=== PATIENT | male | born 1975 | race African-American/Black ===

== ENCOUNTER 2016-05-18 07:53 | Emergency (ER) | payer BC ==
[~2016-05-18] VITALS: Ht 175.3 cm; Wt 104.3 kg
--- NOTE | 2016-05-18 08:37 | PHYS DOC ---
Past Medical History Past Medical History: No Pertinent History Past Surgical History: No Surgical History Alcohol Use: Occasionally Drug Use: None Adult General Chief Complaint Chief Complaint: LOWER EXT PAIN HPI HPI Patient is a 41 year old male who presents with RLE pain and bump. Patient reports 3 days ago he noticed a bump on the lateral aspect of his R foot. No trauma or other inciting event. Since then he has been having pain/numbness all the way up his R leg into his lower back. No urinary complaints. No weakness, no loss of bowel/bladder continence. No prior similar episodes. Review of Systems Review of Systems Constitutional: Denies fever or chills Respiratory: Denies cough or shortness of breath Cardiovascular: Denies chest pain GI: Denies abdominal pain, nausea, vomiting, or diarrhea Musculoskeletal: Bump on R foot, pain/numb from low back down along RLE Neurologic: Denies headache, focal weakness. Numbness in RLE Current Medications Current Medications Current Medications Medications (Trade) Dose Ordered Sig/Dereck Start Time Stop Time Status Last Admin Dose Admin Naproxen (Naprosyn) 500 mg 1X ONCE 05/18/16 08:45 05/18/16 08:46 DC 05/18/16 08:49 500 MG Allergies Allergies Allergies Coded Allergies Type Severity Reaction Last Updated Verified No Known Drug Allergies 08/30/15 No Physical Exam Physical Exam Constitutional: Well developed, well nourished, no acute distress, non-toxic appearance HENT: Normocephalic, atraumatic, bilateral external ears normal Eyes: EOMI, conjunctiva normal, no discharge Neck: Normal range of motion, no stridor Cardiovascular: Heart rate normal, regular rhythm, no murmur Lungs & Thorax: Bilateral breath sounds clear to auscultation Abdomen: Bowel sounds normal, soft, non-distended, no TTP Skin: Warm, dry, no erythema, no rash Back: No TTP, no stepoff Extremities: No obvious deformity, no edema. Small (1cm) raised bump R lateral foot, no erythema/warmth/tenderness noted, 2+ DP pulse, motor function and sensation to light touch fully intact Neurologic: Alert and oriented X 3, strength and sensation to light touch intact and symmetrical in BLE, no gross deficits noted Psychologic: Affect normal, judgement normal, mood normal Current Patient Data Vital Signs Vital Signs Date Time Temp Pulse Resp B/P Pulse Ox O2 Delivery O2 Flow Rate FiO2 05/18/16 10:45 65 12 132/90 99 Room Air 05/18/16 08:03 97.9 97.9 EKG EKG [] Radiology/Procedures Radiology/Procedures X-ray lumbar spine: Impression: Negative for fracture. X-ray R foot: Impression: Negative for fracture. Course & Med Decision Making Course & Med Decision Making Pertinent Labs and Imaging studies reviewed. (See chart for details) Patient is 41 year old male who presents with RLE pain/numbness and bump on R foot. The description of pain/numbness fits with sciatica; will obtain lumbar x- ray and give dose of naproxen (as patient is driving). Bump on R foot appears to be enlarged lymph node, although no infectious source or other clear inciting process is noted. X-ray R foot ordered as well. Imaging results as above. Discussed results with patient. Will plan discharge home with rx for NSAID and muscle relaxant, instructions for follow up, return precautions. Dragon Disclaimer Dragon Disclaimer This electronic medical record was generated, in whole or in part, using a voice recognition dictation system. Departure Departure Impression: Primary Impression: Leg numbness Additional Impression: Lymph node enlargement Disposition: HOME, SELF-CARE Condition: STABLE Referrals: NO PCP (PCP) Patient Instructions: Sciatica Additional Instructions: Thank you for allowing us to provide care today in the Emergency Department. Take the provided medication as directed. Use caution when taking the muscle relaxant as it can make you drowsy. Schedule a follow up appointment with a primary care doctor using the provided list. Return promptly to the Emergency Department if you develop any new or concerning symptoms. Scripts Cyclobenzaprine Hcl 10 Mg [id number] Mg PO TID PRN MUSCLE SPASMS #15 TAB Prov:DAYANARA STERLING MD 05/18/16 Naproxen 375 Mg [id number] Mg PO BID PRN PAIN #20 Prov:DAYANARA STERLING MD 05/18/16 Problem Qualifiers DAYANARA STERLING MD May 18, 2016 08:37
[2016-05-18] MEDS ORDERED: NAPROXEN 500 MG TABLET PO ONE (08:45)
--- NOTE | 2016-05-18 10:13 | RAD ---
Indication: Knot laterally for 2 to 3 days. Technique: 3 views of the right foot are submitted for review. No comparison is available. Findings: There is no fracture or dislocation. There is minimal spurring from the navicular. There is no soft tissue swelling. Impression: Negative for fracture.
--- NOTE | 2016-05-18 10:14 | RAD ---
Indication: Right leg numbness beginning this morning. Technique: 3 views of the lumbar spine are submitted for review. No comparison is available. Findings: Mild dextrocurvature is centered at L2-L3. There is no subluxation. There is no fracture. Vertebral body height height is maintained. There is no narrowing of the interspaced. Impression: Negative for fracture.
[2016-05-18] MEDS ORDERED: NAPR375T3 PO (10:34)
[2016-05-18] MEDS ORDERED: CYCL10TA2 PO (10:34)
[2016-05-18 10:45] VITALS: BP 132/90
== END 2016-05-18 10:46 | disposition home or self-care (01) ==
LOC: ER 07:53
DX: R20.0 Anesthesia of skin (principal); R59.9 Enlarged lymph nodes, unspecified; M54.30 Sciatica, unspecified side
CPT/HCPCS: 72100; 73630; 99284